=== PATIENT | male | born 1965 | race Caucasian/White ===

== ENCOUNTER 2018-09-25 10:14 | Emergency (ER) | payer MEDICAID ==
[~2018-09-25] VITALS: Ht 175.3 cm; Wt 83.5 kg
--- NOTE | 2018-09-25 10:30 | NUR ---
Note undone in EDM - 09/25/18 at 1058 by [email or web address] C/O FALL ON TUESDAY. CONSTANT SHARP RIB PAIN AT 8/10 THAT INCREASES WITH MOVEMENT AND BREATHING. NO OBVIOUS DEFORMITY NOTED, NO BRUISING/REDNESS/SWELLING DENIES N/V/D; SKIN IS PINK/WARM/DRY; AAOX4 WITH EVEN AND STEADY GAIT; LUNGS CLEAR BL; PATIENT POSITIONED FOR COMFORT; HOB ELEVATED; BEDRAILS UP X1; BED DOWN. ER MADE AWARE OF PT STATUS.
[2018-09-25 10:31] VITALS: BP 151/90
--- NOTE | 2018-09-25 10:36 | NUR ---
Patient ambulated to bed 2 with family. RN evaluating patient at bedside.
--- NOTE | 2018-09-25 10:40 | NUR ---
C/O FALL ON TUESDAY. CONSTANT SHARP RIB PAIN AT 8/10 THAT INCREASES WITH MOVEMENT AND BREATHING. NO OBVIOUS DEFORMITY NOTED, NO BRUISING/REDNESS/SWELLING DENIES N/V/D; SKIN IS PINK/WARM/DRY; AAOX4 WITH EVEN AND STEADY GAIT; LUNGS CLEAR BL; PATIENT POSITIONED FOR COMFORT; HOB ELEVATED; BEDRAILS UP X1; BED DOWN. ER MD MADE AWARE OF PT STATUS.
--- NOTE | 2018-09-25 11:00 | NUR ---
ERMD AT BEDSIDE
[2018-09-25] MEDS ORDERED: KETOROLAC 30 MG/ML VIAL IM ONE (11:05)
--- NOTE | 2018-09-25 12:05 | NUR ---
PT RESTING IN BED, NO NEW NEEDS AT THIS TIME
[2018-09-25 13:05] VITALS: BP 138/94
== END 2018-09-25 13:05 | disposition home or self-care (01) ==
LOC: MED 10:14
DX: R07.81 Pleurodynia (principal); M25.521 Pain in right elbow; M25.511 Pain in right shoulder; M25.562 Pain in left knee; M25.561 Pain in right knee; M25.551 Pain in right hip; W01.0XXA Fall on same level from slipping, tripping and stumbling without subsequent striking against object, initial encounter; Y93.89 Activity, other specified; Y92.89 Other specified places as the place of occurrence of the external cause; Y99.8 Other external cause status
CPT/HCPCS: 71101; 73030; 73080; 73502; 73562; 96372; 99283; J1885